=== PATIENT | male | born 1985 | race Caucasian/White ===

== ENCOUNTER 2022-06-22 22:15 | Emergency (ER) | payer BC, SELFPAY ==
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
[2022-06-22 22:20] VITALS: BP 137/69; PULSE 105; RESP 16; TEMP 36.7; O2SAT 98
--- NOTE | 2022-06-22 22:25 | ED.GENADULT ---
HPI - General Adult General Chief complaint: Head Injury Stated complaint: Soccer ball to the face, right side pain Time Seen by Provider: 06/22/22 22:19 Source: RN notes reviewed History of Present Illness HPI narrative: Patient presents emergency department from home for head face and neck pain. Patient states approximately 3 minutes prior to arrival he was playing soccer when he got kicked in the face with a soccer ball states that suckable hit his chin he states he had immediate pain in his bilateral jaw and ears as well as dizziness and nausea states he has had a mild headache with that he also notes pain in his neck since that time he denies any loss of consciousness he denies any vision changes denies any epistaxis states he does not take anything for the pain Related Data Allergies Allergy/AdvReac Type Severity Reaction Status Date / Time No Known Allergies Allergy Verified 06/22/22 22:25 Review of Systems Review of Systems: Gen.: Denies fevers or chills Eyes: Denies eye pain or visual change ENT: Reports facial pain Respiratory: Denies shortness of breath or cough CV: Denies chest pain or palpitations GI: Denies abdominal pain emesis or diarrhea. Reports nausea Musculoskeletal: HPI Neuro: Denies numbness, tingling, weakness or focal weakness reports headache Skin: Denies rash Except as documented, all other systems reviewed and negative PMFSH Past Medical History Medical History (Updated 06/22/22 @ 23:31 by Devon Martinez DO) Patient denies significant medical history Social History Social History (Updated 06/22/22 @ 22:26 by Devon Martinez DO) Smoking status: Never smoker Exam Narrative: APPEARANCE: No acute distress, nontoxic, resting in bed EYES: EOMI, PERRL HEENT: Normocephalic, atraumatic, TMs clear bilaterally nares patent no epistaxis or mucosa moist full range of motion of the jaw tenderness palpation of the bilateral lower jaw up into the TMJ Neck: Supple tender palpation bilateral perigee muscles see 2 through 5 pain with rotation bilaterally no midline tenderness RESPIRATORY: No respiratory distress ABDOMINAL: Soft, nontender, nondistended, MUSCULOSKELETAl: Moves all extremities. No clubbing, cyanosis or edema. NEURO: Awake and alert x 4. Following commands, speech normal, no focal deficits SKIN:: Warm, dry. No rashes lesions or abrasions PSYCHIATRIC: Normal affect/mood, Course Course Emergency Course: Discussed with patient results of workup and diagnosis. Discussed need for follow-up with primary care, proper use of medication, and reasons to return to the emergency department. Patient understands and agrees to current treatment plan. Did discuss with patient thyroid nodules and need for further outpatient imaging Vital Signs Vital signs: Vital Signs Temperature 98.0 F 06/22/22 22:20 Pulse Rate 105 H 06/22/22 22:20 Respiratory Rate 16 06/22/22 22:20 Blood Pressure 137/69 06/22/22 22:20 Pulse Oximetry 98 06/22/22 22:20 Oxygen Delivery Room Air 06/22/22 22:20 Temperature 98.0 F 06/22/22 22:20 Pulse Rate 105 H 06/22/22 22:20 Respiratory Rate 16 06/22/22 22:20 Blood Pressure 137/69 06/22/22 22:20 Pulse Oximetry 98 06/22/22 22:20 Oxygen Delivery Room Air 06/22/22 22:20 Medical Decision Making Vital Signs Vital Signs: Vital Signs Temperature 98.0 F 06/22/22 22:20 Pulse Rate 105 H 06/22/22 22:20 Respiratory Rate 16 06/22/22 22:20 Blood Pressure 137/69 06/22/22 22:20 Pulse Oximetry 98 06/22/22 22:20 Oxygen Delivery Room Air 06/22/22 22:20 Temperature 98.0 F 06/22/22 22:20 Pulse Rate 105 H 06/22/22 22:20 Respiratory Rate 16 06/22/22 22:20 Blood Pressure 137/69 06/22/22 22:20 Pulse Oximetry 98 06/22/22 22:20 Oxygen Delivery Room Air 06/22/22 22:20 Imaging Data Radiologist's impression: ITS Impressions Head CT 06/22/22 23:00 IMPRESSION: No acute intracranial process.
[2022-06-22] MEDS: IBUPROFEN 600 MG TABLET PO (22:30)
[2022-06-22 23:50] VITALS: BP 132/70; PULSE 76; RESP 16; TEMP 36.8; O2SAT 100
== END 2022-06-22 23:50 | disposition home or self-care (01) ==
PROVIDERS: Emergency Provider Emergency Medicine; PCP Family Medicine
DX: S00.83XA Contusion of other part of head, initial encounter (principal); S16.1XXA Strain of muscle, fascia and tendon at neck level, initial encounter; W21.02XA Struck by soccer ball, initial encounter; Y93.66 Activity, soccer
CPT/HCPCS: 70450; 70486; 72125; 99284; A9270